=== PATIENT | male | born 1980 | race Caucasian/White ===

== ENCOUNTER 2018-03-21 14:55 | Emergency (ER) | payer MEDICAID ==
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
[2018-03-21 15:58] LABS: BASOPHILS % (AUTO) 0.5 %; EOSINOPHILS # (AUTO) 0.1 10^3/uL (0.0-0.7); EOSINOPHILS % (AUTO) 1.7 %; HGB - HEMOGLOBIN 14.5 g/dL (14.0-18.0); LYMPHOCYTES # (AUTO) 1.6 10^3/uL (1.5-3.5); LYMPHOCYTES % (AUTO) 21.3 %; MEAN CORPUSCULAR HGB CONC 35.7 g/dL (32.0-36.0); MEAN CORPUSCULAR VOLUME 92.3 fL (80.0-94.0); MEAN PLATELET VOLUME 7.9 fL (7.4-11.4); MONOCYTES # (AUTO) 0.7 10^3/uL (0.0-1.0); MONOCYTES % (AUTO) 8.6 %; NEUTROPHILS # (AUTO) 5.2 10^3/uL (1.5-6.6); NEUTROPHILS % (AUTO) 67.9 %; PLT - PLATELET COUNT 332 10^3/uL (130-450); RED BLOOD COUNT 4.41 10^6/uL (4.70-6.10); RED CELL DISTRIBUTION WIDTH 12.8 % (12.0-15.0); WHITE BLOOD COUNT 7.7 x10^3/uL (4.8-10.8)
[2018-03-21 16:15] LABS: ACETAMINOPHEN < 10 ug/mL (10-30); ALBUMIN 4.8 g/dL (3.2-5.5); ALBUMIN/GLOBULIN RATIO 1.4 (1.0-2.2); ALKALINE PHOSPHATASE 58 IU/L (42-121); ALT ALANINE AMINOTRANSFERASE 73 IU/L (10-60); AST ASPARTATE AMINOTRANSFERASE 42 IU/L (10-42); BILIRUBIN,TOTAL 1.2 mg/dL (0.2-1.0); BUN - BLOOD UREA NITROGEN 11 mg/dL (6-20); CALCIUM 9.5 mg/dL (8.5-10.3); CARBON DIOXIDE - CO2 24 mmol/L (21-32); CHLORIDE 99 mmol/L (101-111); CREATININE 0.9 mg/dL (0.6-1.2); GFR - MDRD 95 (>89); GLUCOSE 101 mg/dL (70-100); LIPASE 22 U/L (22-51); SALICYLATE < 6.0 mg/dL; SODIUM 133 mmol/L (135-145); TOTAL PROTEIN 8.3 g/dL (6.7-8.2)
[2018-03-21 16:24] LABS: VALPROIC ACID (DEPAKOTE) < 10.0 ug/mL
[2018-03-21 16:57] LABS: MUDS CUTOFF CONCENTRATIONS CUTOFF CONC BELOW:
[2018-03-21 17:03] LABS: BILIRUBIN,URINE NEGATIVE (NEGATIVE); GLUCOSE, URINE (UA) NEGATIVE (NEGATIVE); KETONES,URINE (UA) 15 mg/dL (NEGATIVE); LEUKOCYTE ESTERASE, URINE NEGATIVE (NEGATIVE); NITRITE,URINE NEGATIVE (NEGATIVE); OCCULT BLOOD,URINE NEGATIVE (NEGATIVE); PROTEIN,URINE NEGATIVE (NEGATIVE); UROBILINOGEN,URINE 0.2 (NORMAL) E.U./dL (NORMAL)
[2018-03-21 17:05] LABS: CLARITY,URINE CLEAR (CLEAR)
[2018-03-21 17:17] LABS: AMPHETAMINE SCREEN,URINE POSITIVE (NEGATIVE); BENZODIAZEPINES SCREEN, URINE NEGATIVE (NEGATIVE); COCAINE SCREEN URINE NEGATIVE (NEGATIVE); METHADONE SCREEN, URINE NEGATIVE (NEGATIVE); METHAMPHETAMINES SCREEN, URINE POSITIVE (NEGATIVE); OPIATE SCREEN, URINE NEGATIVE (NEGATIVE); OXYCODONE SCREEN, URINE NEGATIVE (NEGATIVE); TRICYCLIC ANTIDEPRESSANT,URINE POSITIVE (NEGATIVE)
[2018-03-21 17:18] LABS: PROPOXYPHENE SCREEN, URINE NEGATIVE (NEGATIVE)
[2018-03-21 23:27] VITALS: BP 149/91
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
== END 2018-03-21 23:25 | disposition home or self-care (01) ==
LOC: ED 14:55
DX: F31.0 Bipolar disorder, current episode hypomanic (principal)
CPT/HCPCS: 36415; 80053; 80164; 80306; 80307; 80320; 80329; 81003; 83690; 84443; 85025; 99283; G0425; Q3014; 81001; 87086

== ENCOUNTER 2019-05-13 17:54 | Emergency (ER) | payer MEDICAID ==
[2019-05-13 18:09] VITALS: BP 115/79
== END 2019-05-13 18:19 | disposition left against medical advice (07) ==
LOC: ED 17:54
DX: Z53.21 Procedure and treatment not carried out due to patient leaving prior to being seen by health care provider (principal)
CPT/HCPCS: 80053; 80307; 80320; 80329; 83690; 84443; 85025

== ENCOUNTER 2019-05-13 19:56 | Emergency (ER) | payer MEDICAID ==
[2019-05-14 00:54] LABS: MUDS CUTOFF CONCENTRATIONS CUTOFF CONC BELOW:
[2019-05-14 01:01] LABS: BILIRUBIN,URINE NEGATIVE (NEGATIVE); CLARITY,URINE CLEAR (CLEAR); GLUCOSE, URINE (UA) NEGATIVE (NEGATIVE); KETONES,URINE (UA) NEGATIVE (NEGATIVE); LEUKOCYTE ESTERASE, URINE NEGATIVE (NEGATIVE); NITRITE,URINE NEGATIVE (NEGATIVE); OCCULT BLOOD,URINE NEGATIVE (NEGATIVE); PROTEIN,URINE NEGATIVE (NEGATIVE); UROBILINOGEN,URINE 0.2 (NORMAL) E.U./dL (NORMAL)
[2019-05-14 01:06] LABS: BASOPHILS # (AUTO) 0.1 10^3/uL (0.0-0.1); BASOPHILS % (AUTO) 0.9 %; EOSINOPHILS # (AUTO) 0.2 10^3/uL (0.0-0.7); EOSINOPHILS % (AUTO) 3.5 %; HGB - HEMOGLOBIN 13.4 g/dL (14.0-18.0); LYMPHOCYTES # (AUTO) 3.3 10^3/uL (1.5-3.5); LYMPHOCYTES % (AUTO) 48.5 %; MEAN CORPUSCULAR HEMOGLOBIN 32.3 pg (27.0-31.0); MEAN CORPUSCULAR HGB CONC 34.1 g/dL (32.0-36.0); MEAN CORPUSCULAR VOLUME 94.7 fL (80.0-94.0); MEAN PLATELET VOLUME 8.9 fL (7.4-11.4); MONOCYTES # (AUTO) 0.4 10^3/uL (0.0-1.0); MONOCYTES % (AUTO) 6.4 %; NEUTROPHILS # (AUTO) 2.8 10^3/uL (1.5-6.6); NEUTROPHILS % (AUTO) 40.6 %; PLT - PLATELET COUNT 363 10^3/uL (130-450); RED BLOOD COUNT 4.15 10^6/uL (4.70-6.10); RED CELL DISTRIBUTION WIDTH 13.1 % (12.0-15.0); WHITE BLOOD COUNT 6.8 x10^3/uL (4.8-10.8)
[2019-05-14 01:13] LABS: AMPHETAMINE SCREEN,URINE POSITIVE (NEGATIVE); BENZODIAZEPINES SCREEN, URINE NEGATIVE (NEGATIVE); COCAINE SCREEN URINE NEGATIVE (NEGATIVE); METHADONE SCREEN, URINE NEGATIVE (NEGATIVE); METHAMPHETAMINES SCREEN, URINE POSITIVE (NEGATIVE); OPIATE SCREEN, URINE NEGATIVE (NEGATIVE); OXYCODONE SCREEN, URINE NEGATIVE (NEGATIVE); PROPOXYPHENE SCREEN, URINE NEGATIVE (NEGATIVE); TRICYCLIC ANTIDEPRESSANT,URINE NEGATIVE (NEGATIVE)
[2019-05-14 01:18] LABS: ALBUMIN 4.2 g/dL (3.2-5.5); ALBUMIN/GLOBULIN RATIO 1.6 (1.0-2.2); ALKALINE PHOSPHATASE 56 IU/L (42-121); ALT ALANINE AMINOTRANSFERASE 22 IU/L (10-60); AST ASPARTATE AMINOTRANSFERASE 21 IU/L (10-42); BILIRUBIN,TOTAL 0.3 mg/dL (0.2-1.0); BUN - BLOOD UREA NITROGEN 19 mg/dL (6-20); CALCIUM 9.6 mg/dL (8.5-10.3); CARBON DIOXIDE - CO2 28 mmol/L (21-32); CHLORIDE 102 mmol/L (101-111); CREATININE 0.8 mg/dL (0.6-1.2); GFR - MDRD 109 (>89); GLUCOSE 109 mg/dL (70-100); LIPASE 57 U/L (22-51); SODIUM 140 mmol/L (135-145); TOTAL PROTEIN 6.9 g/dL (6.7-8.2)
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
[2019-05-14 05:58] VITALS: BP 115/74
[2019-05-14] MEDS ORDERED: ACETAMINOPHEN 325 MG TABLET PO STA (06:45)
== END 2019-05-14 06:50 | disposition home or self-care (01) ==
LOC: ED 19:56
DX: F15.129 Other stimulant abuse with intoxication, unspecified (principal); F19.10 Other psychoactive substance abuse, uncomplicated; F31.62 Bipolar disorder, current episode mixed, moderate; Z59.0 Homelessness
CPT/HCPCS: 36415; 80053; 80306; 80320; 81003; 83690; 85025; 99283; A9270; 81001; 87086

== ENCOUNTER 2019-07-07 10:58 | Emergency (ER) | payer MEDICAID ==
[2019-07-07 11:07] VITALS: BP 130/81
[2019-07-07 11:27] LABS: BASOPHILS # (AUTO) 0.1 10^3/uL (0.0-0.1); BASOPHILS % (AUTO) 1.1 %; EOSINOPHILS # (AUTO) 0.4 10^3/uL (0.0-0.7); HGB - HEMOGLOBIN 12.8 g/dL (14.0-18.0); LYMPHOCYTES # (AUTO) 1.7 10^3/uL (1.5-3.5); LYMPHOCYTES % (AUTO) 31.8 %; MEAN CORPUSCULAR HEMOGLOBIN 30.8 pg (27.0-31.0); MEAN CORPUSCULAR HGB CONC 32.3 g/dL (32.0-36.0); MEAN CORPUSCULAR VOLUME 95.4 fL (80.0-94.0); MEAN PLATELET VOLUME 9.2 fL (7.4-11.4); MONOCYTES # (AUTO) 0.5 10^3/uL (0.0-1.0); NEUTROPHILS # (AUTO) 2.6 10^3/uL (1.5-6.6); NEUTROPHILS % (AUTO) 49.5 %; PLT - PLATELET COUNT 305 10^3/uL (130-450); RED BLOOD COUNT 4.15 10^6/uL (4.70-6.10); RED CELL DISTRIBUTION WIDTH 13.5 % (12.0-15.0); WHITE BLOOD COUNT 5.3 x10^3/uL (4.8-10.8)
[2019-07-07 11:49] LABS: ACETAMINOPHEN < 10 ug/mL (10-30); ALBUMIN 4.3 g/dL (3.2-5.5); ALBUMIN/GLOBULIN RATIO 1.5 (1.0-2.2); ALKALINE PHOSPHATASE 58 IU/L (42-121); ALT ALANINE AMINOTRANSFERASE 30 IU/L (10-60); AST ASPARTATE AMINOTRANSFERASE 22 IU/L (10-42); BILIRUBIN,TOTAL 0.8 mg/dL (0.2-1.0); BUN - BLOOD UREA NITROGEN 13 mg/dL (6-20); CALCIUM 9.4 mg/dL (8.5-10.3); CARBON DIOXIDE - CO2 26 mmol/L (21-32); CHLORIDE 105 mmol/L (101-111); CREATININE 0.7 mg/dL (0.6-1.2); GFR - MDRD 126 (>89); GLUCOSE 101 mg/dL (70-100); LIPASE 26 U/L (22-51); SALICYLATE < 6.0 mg/dL; SODIUM 139 mmol/L (135-145); TOTAL PROTEIN 7.1 g/dL (6.7-8.2)
== END 2019-07-07 12:04 | disposition left against medical advice (07) ==
LOC: ED 10:58
DX: Z53.21 Procedure and treatment not carried out due to patient leaving prior to being seen by health care provider (principal)
CPT/HCPCS: 36415; 80053; 80307; 80320; 80329; 83690; 84443; 85025

== ENCOUNTER 2019-12-28 13:15 | Outpatient (CLI) | payer MEDICAID | END 2019-12-28 13:16 | disposition critical access hospital (66) | LOC: EMS 13:15 | PROVIDERS: ATTEND Surgery | DX: R41.82 Altered mental status, unspecified (principal) | CPT/HCPCS: A0425; A0429; A0999 ==

== ENCOUNTER 2019-12-28 14:00 | Emergency (ER) | payer MEDICAID ==
--- NOTE | 2019-12-28 14:10 | ED Physician Documentation ---
PD HPI MHE - Stated complaint Stated Complaint: MHE - History obtained from History obtained from: Patient - History of Present Illness Primary symptom: Psychosis (39-year-old gentleman with history of "insanity per him" presents seemingly just compensated from same. Police were called because he was acting odd in public. He is a rambling historian and seems fixated on the safety of his family as well as the difference between black versus white people. He says he is trying to take his medications but unclear if he actually is. He also admits to taking some Adderall that was not his.), Anxiety Review of Systems Ten Systems: 10 systems reviewed and negative Constitutional: denies: Fever, Chills Throat: denies: Dental pain / toothache, Sore throat Cardiac: denies: Chest pain / pressure, Palpitations Respiratory: denies: Dyspnea, Cough PD PAST MEDICAL HISTORY - Past Medical History Past Medical History: Yes GI: GERD Psych: Anxiety, Bipolar disorder, Post traumatic stress disorder - Past Surgical History Past Surgical History: No - Present Medications Home Medications: Ambulatory Orders Medication Instructions Recorded Confirmed Divalproex [Christianne Dr] 750 mg PO BID 03/21/18 05/14/19 Prazosin [Minipress] 1 tab PO DAILY 03/21/18 05/14/19 Propranolol [Inderal] 1 tab PO BID 03/21/18 05/14/19 Quetiapine Fumarate [Seroquel] 400 mg PO QPM #30 tablet 03/21/18 05/14/19 Zolpidem [Ambien] 1 tab PO DAILY 03/21/18 05/14/19 haloperidoL [Haloperidol] 1 tab PO BID 03/21/18 05/14/19 raNITIdine [Zantac] 150 mg PO DAILY 03/21/18 05/14/19 - Allergies Allergies/Adverse Reactions: Allergies Allergy/AdvReac Type Severity Reaction Status Date / Time risperidone Allergy Unknown Verified 07/07/19 11:07 - Social History Does the pt smoke?: No Smoking Status: Never smoker Does the pt drink ETOH?: Yes - Family History Family history: reports: Non contributory - POLST Patient has POLST: No PD ED PE NORMAL - Vitals Vital signs reviewed: Yes - General General: Alert and oriented X 3 (He is unkempt) - HEENT HEENT: PERRL, EOMI - Neck Neck: Supple, no meningeal sign, No bony TTP - Cardiac Cardiac: RRR, No murmur - Respiratory Respiratory: No respiratory distress, Clear bilaterally - Abdomen Abdomen: Non tender, Non distended - Derm Derm: Normal color, Warm and dry - Extremities Extremities: No edema, No calf tenderness / cord - Neuro Neuro: Alert and oriented X 3, No motor deficit, No sensory deficit, Normal speech - Psych Psych: Other (Rambling and tangential historian with delusions about safety of his family.) Results - Vitals Vitals: Vital Signs - 24 hr 12/28/19 12/28/19 12/28/19 14:19 14:23 16:45 Temperature 36.2 C L Heart Rate 97 95 99 Respiratory 16 16 20 Rate Blood Pressure 140/96 H 138/78 H 145/74 H O2 Saturation 100 100 100 12/28/19 12/28/19 17:55 21:43 Temperature 36.6 C Heart Rate 103 H 81 Respiratory 20 12 Rate Blood Pressure 155/98 H 148/88 H O2 Saturation 100 99 Oxygen O2 Source Room air - EKG (time done) 1428 Rate: Rate (enter#) (88) Rhythm: NSR (with sinus arrythmia) [place]: Normal Intervals: Normal [place] QRS: Normal Ischemia: Normal ST segments Computer interpretation: Agree with computer - Labs Labs: Laboratory Tests 12/28/19 12/28/19 12/28/19 14:10 14:10 14:10 WBC 10.6 RBC 4.60 L Hgb 14.6 Hct 42.0 MCV 91.3 MCH 31.7 H MCHC 34.8 RDW 12.3 Plt Count 538 H MPV 9.0 Neut # (Auto) 7.7 H Lymph # (Auto) 1.9 [place] # (Auto) 0.8 Eos # (Auto) 0.1 Baso # (Auto) 0.1 Absolute Nucleated RBC 0.00 Nucleated RBC % 0.0 Sodium 130 L Potassium 3.6 Chloride 96 L Carbon Dioxide 20 L Anion Gap 14.0 H BUN 14 Creatinine 0.7 Estimated GFR (MDRD) 126 Glucose 91 Calcium 9.6 Total Bilirubin 1.1 H AST 27 ALT 24 Alkaline Phosphatase 53 Total Protein 8.3 H Albumin 5.1 Globulin 3.2 Albumin/Globulin Ratio 1.6 Lipase 22 TSH 2.96 Urine Color Urine Clarity Urine pH Ur Specific [place] Urine Protein Urine Glucose (UA) Urine Ketones Urine Occult Blood Urine Nitrite Urine Bilirubin Urine Urobilinogen Ur Leukocyte Esterase Ur Microscopic Review Urine Culture Comments Last Dose Date Last Dose Time Salicylates < 6.0 Urine Opiates Screen Ur Oxycodone Screen Urine Methadone Screen Ur Propoxyphene Screen Acetaminophen < 10 L Ur Barbiturates Screen Valproic Acid Ur Tricyclics Screen Ur Phencyclidine Scrn Ur Amphetamine Screen U Methamphetamines Scrn U Benzodiazepines Scrn Urine Cocaine Screen U Cannabinoids Screen Ethyl Alcohol < 5.0 12/28/19 12/28/19 14:10 15:22 WBC RBC Hgb Hct MCV MCH MCHC RDW Plt Count MPV Neut # (Auto) Lymph # (Auto) [place] # (Auto) Eos # (Auto) Baso # (Auto) Absolute Nucleated RBC Nucleated RBC % Sodium Potassium Chloride Carbon Dioxide Anion Gap BUN Creatinine Estimated GFR (MDRD) Glucose Calcium Total Bilirubin AST ALT Alkaline Phosphatase Total Protein Albumin Globulin Albumin/Globulin Ratio Lipase TSH Urine Color YELLOW Urine Clarity CLEAR Urine pH 6.0 Ur Specific [place] 1.015 Urine Protein NEGATIVE Urine Glucose (UA) NEGATIVE Urine Ketones NEGATIVE Urine Occult Blood NEGATIVE Urine Nitrite NEGATIVE Urine Bilirubin NEGATIVE Urine Urobilinogen 0.2 (NORMAL) Ur Leukocyte Esterase NEGATIVE Ur Microscopic Review NOT INDICATED Urine Culture Comments NOT INDICATED Last Dose Date UNK Last Dose Time UNK Salicylates Urine Opiates Screen NEGATIVE Ur Oxycodone Screen NEGATIVE Urine Methadone Screen NEGATIVE Ur Propoxyphene Screen NEGATIVE Acetaminophen Ur Barbiturates Screen NEGATIVE Valproic Acid < 10.0 Ur Tricyclics Screen NEGATIVE Ur Phencyclidine Scrn NEGATIVE Ur Amphetamine Screen POSITIVE H U Methamphetamines Scrn POSITIVE H U Benzodiazepines Scrn NEGATIVE Urine Cocaine Screen NEGATIVE U Cannabinoids Screen POSITIVE H Ethyl Alcohol PD MEDICAL DECISION MAKING - ED course ED course: Pt with delusions/psychosis. Willing to be hospitalized, but not sure he would be a good kiana voluntary and as such DCR saw pt and arranged for xfer to [facility] for tx. Departure - Departure Disposition: 65 Psych Hosp/Unit DC/Xfer Clinical Impression: Substance abuse Bipolar affective disorder Qualifiers: Active/Remission status: currently active Current bipolar episode type: manic Current episode severity: severe Psychotic features: with psychotic features Qualified Code(s): F31.2 - Bipolar disorder, current episode manic severe with psychotic features Condition: Stable Discharge Date/Time: 12/29/19 02:05
[2019-12-28 14:18] LABS: BASOPHILS # (AUTO) 0.1 10^3/uL (0.0-0.1); BASOPHILS % (AUTO) 0.5 %; EOSINOPHILS # (AUTO) 0.1 10^3/uL (0.0-0.7); HGB - HEMOGLOBIN 14.6 g/dL (14.0-18.0); LYMPHOCYTES # (AUTO) 1.9 10^3/uL (1.5-3.5); LYMPHOCYTES % (AUTO) 17.9 %; MEAN CORPUSCULAR HEMOGLOBIN 31.7 pg (27.0-31.0); MEAN CORPUSCULAR HGB CONC 34.8 g/dL (32.0-36.0); MEAN CORPUSCULAR VOLUME 91.3 fL (80.0-94.0); MONOCYTES # (AUTO) 0.8 10^3/uL (0.0-1.0); MONOCYTES % (AUTO) 7.3 %; NEUTROPHILS # (AUTO) 7.7 10^3/uL (1.5-6.6); NEUTROPHILS % (AUTO) 72.8 %; PLT - PLATELET COUNT 538 10^3/uL (130-450); RED CELL DISTRIBUTION WIDTH 12.3 % (12.0-15.0); WHITE BLOOD COUNT 10.6 x10^3/uL (4.8-10.8)
[2019-12-28 14:34] LABS: ACETAMINOPHEN < 10 ug/mL (10-30); ALBUMIN 5.1 g/dL (3.2-5.5); ALBUMIN/GLOBULIN RATIO 1.6 (1.0-2.2); ALKALINE PHOSPHATASE 53 IU/L (42-121); ALT ALANINE AMINOTRANSFERASE 24 IU/L (10-60); AST ASPARTATE AMINOTRANSFERASE 27 IU/L (10-42); BILIRUBIN,TOTAL 1.1 mg/dL (0.2-1.0); BUN - BLOOD UREA NITROGEN 14 mg/dL (6-20); CALCIUM 9.6 mg/dL (8.5-10.3); CARBON DIOXIDE - CO2 20 mmol/L (21-32); CHLORIDE 96 mmol/L (101-111); CREATININE 0.7 mg/dL (0.6-1.2); GLUCOSE 91 mg/dL (70-100); LIPASE 22 U/L (22-51); SALICYLATE < 6.0 mg/dL; SODIUM 130 mmol/L (135-145); TOTAL PROTEIN 8.3 g/dL (6.7-8.2)
[2019-12-28 14:49] LABS: VALPROIC ACID (DEPAKOTE) < 10.0 ug/mL
[2019-12-28 15:33] LABS: MUDS CUTOFF CONCENTRATIONS CUTOFF CONC BELOW:
[2019-12-28 15:36] LABS: BILIRUBIN,URINE NEGATIVE (NEGATIVE); GLUCOSE, URINE (UA) NEGATIVE (NEGATIVE); KETONES,URINE (UA) NEGATIVE (NEGATIVE); LEUKOCYTE ESTERASE, URINE NEGATIVE (NEGATIVE); NITRITE,URINE NEGATIVE (NEGATIVE); OCCULT BLOOD,URINE NEGATIVE (NEGATIVE); PROTEIN,URINE NEGATIVE (NEGATIVE); UROBILINOGEN,URINE 0.2 (NORMAL) E.U./dL (NORMAL)
[2019-12-28 15:38] LABS: CLARITY,URINE CLEAR (CLEAR)
[2019-12-28 15:48] LABS: AMPHETAMINE SCREEN,URINE POSITIVE (NEGATIVE); BENZODIAZEPINES SCREEN, URINE NEGATIVE (NEGATIVE); COCAINE SCREEN URINE NEGATIVE (NEGATIVE); METHADONE SCREEN, URINE NEGATIVE (NEGATIVE); METHAMPHETAMINES SCREEN, URINE POSITIVE (NEGATIVE); OPIATE SCREEN, URINE NEGATIVE (NEGATIVE); TRICYCLIC ANTIDEPRESSANT,URINE NEGATIVE (NEGATIVE)
[2019-12-28 15:49] LABS: OXYCODONE SCREEN, URINE NEGATIVE (NEGATIVE); PROPOXYPHENE SCREEN, URINE NEGATIVE (NEGATIVE)
[2019-12-29] MEDS: OLANZapine ODT 5 MG TABLET TL ONE (01:55)
[2019-12-29 02:08] VITALS: BP 148/88
== END 2019-12-29 02:05 ==
LOC: EDUNIT# → ED 14:00
DX: F19.10 Other psychoactive substance abuse, uncomplicated (principal); F31.2 Bipolar disorder, current episode manic severe with psychotic features
CPT/HCPCS: 36415; 80053; 80164; 80306; 80307; 80320; 80329; 81003; 83690; 84443; 85025; 93005; 99283; 99285; A9270; 81001; 87086

== ENCOUNTER 2020-03-01 16:10 | Outpatient (CLI) | payer MEDICAID | END 2020-03-01 16:11 | disposition critical access hospital (66) | LOC: EMS 16:10 | PROVIDERS: ATTEND Surgery | DX: Z59.0 Homelessness (principal) | CPT/HCPCS: A0425; A0429; A0999 ==

== ENCOUNTER 2020-03-01 16:46 | Emergency (ER) | payer MEDICAID ==
[2020-03-01 16:55] VITALS: BP 108/90
--- NOTE | 2020-03-01 17:43 | ED Physician Documentation ---
History of Present Illness - Stated complaint Stated Complaint: MHE - Chief complaint Chief Complaint: General - History obtained from History obtained from: Patient - History of Present Illness Timing: Prior to arrival Pain level max: 0 Pain level now: 0 - Additonal information Additional information: 39-year-old homeless male presents to the emergency department requesting social work evaluation. He reports that he is homeless has a history of schizophrenia and has been having a difficult time managing his medications while homeless. In point he denies SI or HI.He would like to go to [facility] to be admitted as an inpatient for management of his homelessness and schizophrenia. he has plenty of meds in his possession meds: aripiprazole, divalprox, gabapentin, prazosin, seroquel, trazadone Review of Systems Constitutional: reports: Fever. denies: Chills Eyes: denies: Loss of vision, Decreased vision GI: denies: Abdominal Pain, Abdominal Swelling Musculoskeletal: reports: Extremity pain (bilateral feet). denies: Neck pain, Back pain Psychiatric: reports: Anxiety. denies: Depressed, Suicidal, Homicidal, Hallucinations, Delusions PD PAST MEDICAL HISTORY - Past Medical History Past Medical History: Yes GI: GERD Psych: Anxiety, Bipolar disorder, Post traumatic stress disorder - Past Surgical History Past Surgical History: No - Present Medications Home Medications: Ambulatory Orders Medication Instructions Recorded Confirmed Divalproex [Christianne Jean] 750 mg PO BID 03/21/18 05/14/19 Prazosin [Minipress] 1 tab PO DAILY 03/21/18 05/14/19 Propranolol [Inderal] 1 tab PO BID 03/21/18 05/14/19 Quetiapine Fumarate [Seroquel] 400 mg PO QPM #30 tablet 03/21/18 05/14/19 Zolpidem [Ambien] 1 tab PO DAILY 03/21/18 05/14/19 haloperidoL [Haloperidol] 1 tab PO BID 03/21/18 05/14/19 raNITIdine [Zantac] 150 mg PO DAILY 03/21/18 05/14/19 - Allergies Allergies/Adverse Reactions: Allergies Allergy/AdvReac Type Severity Reaction Status Date / Time risperidone Allergy Unknown Verified 03/01/20 16:52 - Social History Does the pt smoke?: No Smoking Status: Never smoker Does the pt drink ETOH?: Yes Does the pt have substance abuse?: No - POLST Patient has POLST: No PD ED PE NORMAL - General General: Alert and oriented X 3, No acute distress, Well developed/nourished, Other - HEENT HEENT: PERRL, EOMI - Neck Neck: No bony TTP, No adenopathy - Cardiac Cardiac: RRR, No murmur - Respiratory Respiratory: No respiratory distress - Extremities Extremities: Other (bilateral feet pain. no sores or lesions. normal gait) - Neuro Neuro: Alert and oriented X 3, chest pain coordinator 2-12 intact, No motor deficit, No sensory deficit - Psych Psych: Normal mood, Other (Denies thoughts of self-harm or harm to others. No auditory or visual hallucinations.) Results - Vitals Vitals: Vital Signs - 24 hr 03/01/20 16:52 Temperature 36.9 C Heart Rate 82 Respiratory 16 Rate Blood Pressure 108/90 H O2 Saturation 100 Oxygen O2 Source Room air - Labs Labs: Laboratory Tests 03/01/20 03/01/20 03/01/20 17:50 17:50 17:50 WBC 7.7 RBC 4.20 L Hgb 13.3 L Hct 39.1 L MCV 93.1 MCH 31.7 H MCHC 34.0 RDW 12.9 Plt Count 331 MPV 9.6 Neut # (Auto) 4.7 Lymph # (Auto) 2.2 [place] # (Auto) 0.4 Eos # (Auto) 0.2 Baso # (Auto) 0.0 Absolute Nucleated RBC 0.00 Nucleated RBC % 0.0 Sodium 138 Potassium 4.1 Chloride 102 Carbon Dioxide 26 Anion Gap 10.0 BUN 13 Creatinine 0.7 Estimated GFR (MDRD) 126 Glucose 118 H Calcium 9.1 Total Bilirubin 0.4 AST 20 ALT 20 Alkaline Phosphatase 47 Total Protein 7.0 Albumin 4.5 Globulin 2.5 Albumin/Globulin Ratio 1.8 Lipase 27 TSH 0.12 L Salicylates < 6.0 Acetaminophen < 10 L Ethyl Alcohol < 5.0 PD MEDICAL DECISION MAKING - ED course Complexity details: reviewed results, re-evaluated patient, d/w patient ED course: 39-year-old male who is homeless presents to the emergency department requesting help managing his homelessness. He reports a history of schizophrenia and he has his medications with him. He reports that he wants to voluntarily go to [facility] so they can help him manage his medications. In point he denies SI or HI. He has no auditory or visual hallucinations he feels that he is safe. He just reports difficulty managing being homeless while here on [facility]. - Pt spoke on the public crisis line And feels that he is ready to leave the [facility]. He denies suicidal or homicidal ideation. He plans to go to a friend's house in [place] to [place] belongings and [place] go to [place] or [facility] where they have better homeless resources. He no longer wishes to remain in the emergency department. Departure - Departure Disposition: 01 Home, Self Care Clinical Impression: Homeless single person Schizophrenia Qualifiers: Schizophrenia type: other Qualified Code(s): F20.89 - Other schizophrenia; F20.8 - Other schizophrenia Condition: Stable Record reviewed to determine appropriate education?: Yes Instructions: ED Schizophrenia General Comments: Mathew I think your plan is good. [place]aying with a friend [place] a good idea as well as going to [place] or [place] where [facility] and more homeless resources are. If at any point you feel unsafe or have thoughts of self-harm return immediately to the emergency department.
[2020-03-01 17:57] LABS: BASOPHILS % (AUTO) 0.5 %; EOSINOPHILS # (AUTO) 0.2 10^3/uL (0.0-0.7); EOSINOPHILS % (AUTO) 2.7 %; HGB - HEMOGLOBIN 13.3 g/dL (14.0-18.0); LYMPHOCYTES # (AUTO) 2.2 10^3/uL (1.5-3.5); LYMPHOCYTES % (AUTO) 29.1 %; MEAN CORPUSCULAR HEMOGLOBIN 31.7 pg (27.0-31.0); MEAN CORPUSCULAR VOLUME 93.1 fL (80.0-94.0); MEAN PLATELET VOLUME 9.6 fL (7.4-11.4); MONOCYTES # (AUTO) 0.4 10^3/uL (0.0-1.0); MONOCYTES % (AUTO) 5.6 %; NEUTROPHILS # (AUTO) 4.7 10^3/uL (1.5-6.6); NEUTROPHILS % (AUTO) 61.7 %; PLT - PLATELET COUNT 331 10^3/uL (130-450); RED CELL DISTRIBUTION WIDTH 12.9 % (12.0-15.0); WHITE BLOOD COUNT 7.7 x10^3/uL (4.8-10.8)
[2020-03-01 18:13] LABS: ACETAMINOPHEN < 10 ug/mL (10-30); ALBUMIN 4.5 g/dL (3.2-5.5); ALBUMIN/GLOBULIN RATIO 1.8 (1.0-2.2); ALKALINE PHOSPHATASE 47 IU/L (42-121); ALT ALANINE AMINOTRANSFERASE 20 IU/L (10-60); AST ASPARTATE AMINOTRANSFERASE 20 IU/L (10-42); BILIRUBIN,TOTAL 0.4 mg/dL (0.2-1.0); BUN - BLOOD UREA NITROGEN 13 mg/dL (6-20); CALCIUM 9.1 mg/dL (8.5-10.3); CARBON DIOXIDE - CO2 26 mmol/L (21-32); CHLORIDE 102 mmol/L (101-111); CREATININE 0.7 mg/dL (0.6-1.2); GLUCOSE 118 mg/dL (70-100); LIPASE 27 U/L (22-51); SALICYLATE < 6.0 mg/dL; SODIUM 138 mmol/L (135-145)
== END 2020-03-01 18:53 | disposition home or self-care (01) ==
LOC: EDUNIT# → ED 16:46
DX: F20.9 Schizophrenia, unspecified (principal); F41.9 Anxiety disorder, unspecified; Z59.0 Homelessness; M79.672 Pain in left foot; M79.671 Pain in right foot
CPT/HCPCS: 36415; 80053; 80307; 80320; 80329; 83690; 84443; 85025; 99283; 99284

== ENCOUNTER 2020-03-26 19:18 | Outpatient (CLI) | payer MEDICAID | END 2020-03-26 23:59 | disposition critical access hospital (66) | LOC: EMS 19:18 | PROVIDERS: ATTEND Surgery | DX: R44.0 Auditory hallucinations (principal); R41.0 Disorientation, unspecified | CPT/HCPCS: A0425; A0429; A0999 ==

== ENCOUNTER 2020-03-26 19:53 | Emergency (ER) | payer MEDICAID ==
--- NOTE | 2020-03-26 19:57 | ED Physician Documentation ---
PD HPI MHE - Stated complaint Stated Complaint: HALLUCINATIONS - History obtained from History obtained from: Patient, EMS - Additional information Additional information: 39-year-old gentleman with history of bipolar disorder presents with depression, suicidal ideation without plan, and auditory hallucinations requesting voluntary hospitalization for the above. Admits to methamphetamine abuse last used 2 days ago. Last hospitalization for psychiatric reasons approximately 3 months ago. Review of Systems Ten Systems: 10 systems reviewed and negative Constitutional: reports: Reviewed and negative Ears: reports: Reviewed and negative Nose: reports: Reviewed and negative Cardiac: reports: Reviewed and negative PD PAST MEDICAL HISTORY - Past Medical History GI: GERD Psych: Anxiety, Bipolar disorder, Post traumatic stress disorder - Past Surgical History Past Surgical History: No - Present Medications Home Medications: Ambulatory Orders Medication Instructions Recorded Confirmed ARIPiprazole [Abilify] 5 mg PO QPM 03/26/20 03/26/20 Atomoxetine HCl 60 mg PO DAILY 03/26/20 03/26/20 Divalproex ER [Depakote ER] 500 mg PO DAILY 03/26/20 03/26/20 Gabapentin 300 mg PO TID 03/26/20 03/26/20 Quetiapine Fumarate 300 mg PO QPM 03/26/20 03/26/20 Trazodone HCl 100 mg PO QPM 03/26/20 03/26/20 - Allergies Allergies/Adverse Reactions: Allergies Allergy/AdvReac Type Severity Reaction Status Date / Time lithium Allergy Unknown Verified 03/26/20 20:07 risperidone Allergy Unknown Verified 03/26/20 20:07 - Social History Does the pt smoke?: No Smoking Status: Never smoker Does the pt drink ETOH?: Yes Does the pt have substance abuse?: No - POLST Patient has POLST: No PD ED PE NORMAL - Vitals Vital signs reviewed: Yes - General General: Alert and oriented X 3, Other (Cooperative but slightly hypervigilant) - HEENT HEENT: PERRL, EOMI - Neck Neck: Supple, no meningeal sign, No bony TTP - Cardiac Cardiac: RRR, No murmur - Respiratory Respiratory: No respiratory distress, Clear bilaterally - Abdomen Abdomen: Soft, Non tender - Back Back: No CVA TTP, No spinal TTP - Derm Derm: Normal color, Warm and dry - Extremities Extremities: No edema, No calf tenderness / cord - Neuro Neuro: Alert and oriented X 3, Normal speech Results - Vitals Vitals: Vital Signs - 24 hr 03/26/20 20:00 Temperature 36.2 C L Heart Rate 80 Respiratory 18 Rate Blood Pressure 110/96 H O2 Saturation 100 Oxygen O2 Source Room air - Labs Labs: Laboratory Tests 03/26/20 03/26/20 03/26/20 20:05 20:15 20:15 WBC 6.0 RBC 4.07 L Hgb 13.1 L Hct 38.2 L MCV 93.9 MCH 32.2 H MCHC 34.3 RDW 12.7 Plt Count 289 MPV 9.0 Neut # (Auto) 2.9 Lymph # (Auto) 2.2 [place] # (Auto) 0.5 Eos # (Auto) 0.3 Baso # (Auto) 0.0 Absolute Nucleated RBC 0.00 Nucleated RBC % 0.0 Sodium 137 Potassium 3.9 Chloride 102 Carbon Dioxide 29 Anion Gap 6.0 BUN 22 H Creatinine 0.8 Estimated GFR (MDRD) 108 Glucose 87 Calcium 9.1 Total Bilirubin 0.7 AST 24 ALT 30 Alkaline Phosphatase 43 Total Protein 6.9 Albumin 4.4 Globulin 2.5 Albumin/Globulin Ratio 1.8 Lipase 27 TSH Urine Color YELLOW Urine Clarity CLEAR Urine pH 5.5 Ur Specific [place] >=1.030 H Urine Protein NEGATIVE Urine Glucose (UA) NEGATIVE Urine Ketones NEGATIVE Urine Occult Blood NEGATIVE Urine Nitrite NEGATIVE Urine Bilirubin NEGATIVE Urine Urobilinogen 0.2 (NORMAL) Ur Leukocyte Esterase NEGATIVE Ur Microscopic Review NOT INDICATED Urine Culture Comments NOT INDICATED Last Dose Date Last Dose Time Salicylates < 6.0 Urine Opiates Screen NEGATIVE Ur Oxycodone Screen NEGATIVE Urine Methadone Screen NEGATIVE Ur Propoxyphene Screen NEGATIVE Acetaminophen < 10 L Ur Barbiturates Screen NEGATIVE Valproic Acid Ur Tricyclics Screen POSITIVE H Ur Phencyclidine Scrn NEGATIVE Ur Amphetamine Screen POSITIVE H U Methamphetamines Scrn POSITIVE H U Benzodiazepines Scrn NEGATIVE Urine Cocaine Screen NEGATIVE U Cannabinoids Screen POSITIVE H Ethyl Alcohol < 5.0 03/26/20 03/26/20 20:15 20:15 WBC RBC Hgb Hct MCV MCH MCHC RDW Plt Count MPV Neut # (Auto) Lymph # (Auto) [place] # (Auto) Eos # (Auto) Baso # (Auto) Absolute Nucleated RBC Nucleated RBC % Sodium Potassium Chloride Carbon Dioxide Anion Gap BUN Creatinine Estimated GFR (MDRD) Glucose Calcium Total Bilirubin AST ALT Alkaline Phosphatase Total Protein Albumin Globulin Albumin/Globulin Ratio Lipase TSH 0.44 Urine Color Urine Clarity Urine pH Ur Specific [place] Urine Protein Urine Glucose (UA) Urine Ketones Urine Occult Blood Urine Nitrite Urine Bilirubin Urine Urobilinogen Ur Leukocyte Esterase Ur Microscopic Review Urine Culture Comments Last Dose Date UNKNOWN Last Dose Time UNKNOWN Salicylates Urine Opiates Screen Ur Oxycodone Screen Urine Methadone Screen Ur Propoxyphene Screen Acetaminophen Ur Barbiturates Screen Valproic Acid < 10.0 Ur Tricyclics Screen Ur Phencyclidine Scrn Ur Amphetamine Screen U Methamphetamines Scrn U Benzodiazepines Scrn Urine Cocaine Screen U Cannabinoids Screen Ethyl Alcohol PD MEDICAL DECISION MAKING - ED course ED course: 39 yo male BIBA and requests voluntary psych admit. Psych dx + drug abuse. [place] considering. Plan at sign out to night MD> if [place] pt says no, telepsych and SW AM. Pt is voluntary. Departure - Departure Clinical Impression: Substance abuse Bipolar affective disorder Qualifiers: Active/Remission status: currently active Current bipolar episode type: hypomanic Qualified Code(s): F31.0 - Bipolar disorder, current episode hypomanic Condition: Stable
[2020-03-26 20:10] LABS: MUDS CUTOFF CONCENTRATIONS CUTOFF CONC BELOW:
[2020-03-26 20:14] LABS: BILIRUBIN,URINE NEGATIVE (NEGATIVE); GLUCOSE, URINE (UA) NEGATIVE (NEGATIVE); KETONES,URINE (UA) NEGATIVE (NEGATIVE); LEUKOCYTE ESTERASE, URINE NEGATIVE (NEGATIVE); NITRITE,URINE NEGATIVE (NEGATIVE); OCCULT BLOOD,URINE NEGATIVE (NEGATIVE); PH,URINE 5.5 PH (5.0-7.5); PROTEIN,URINE NEGATIVE (NEGATIVE); UROBILINOGEN,URINE 0.2 (NORMAL) E.U./dL (NORMAL)
[2020-03-26 20:15] LABS: CLARITY,URINE CLEAR (CLEAR)
[2020-03-26 20:21] LABS: BASOPHILS % (AUTO) 0.5 %; EOSINOPHILS # (AUTO) 0.3 10^3/uL (0.0-0.7); HGB - HEMOGLOBIN 13.1 g/dL (14.0-18.0); LYMPHOCYTES # (AUTO) 2.2 10^3/uL (1.5-3.5); MEAN CORPUSCULAR HEMOGLOBIN 32.2 pg (27.0-31.0); MEAN CORPUSCULAR HGB CONC 34.3 g/dL (32.0-36.0); MEAN CORPUSCULAR VOLUME 93.9 fL (80.0-94.0); MONOCYTES # (AUTO) 0.5 10^3/uL (0.0-1.0); MONOCYTES % (AUTO) 7.9 %; NEUTROPHILS # (AUTO) 2.9 10^3/uL (1.5-6.6); NEUTROPHILS % (AUTO) 49.3 %; PLT - PLATELET COUNT 289 10^3/uL (130-450); RED BLOOD COUNT 4.07 10^6/uL (4.70-6.10); RED CELL DISTRIBUTION WIDTH 12.7 % (12.0-15.0)
[2020-03-26 20:37] LABS: ACETAMINOPHEN < 10 ug/mL (10-30); ALBUMIN 4.4 g/dL (3.2-5.5); ALBUMIN/GLOBULIN RATIO 1.8 (1.0-2.2); ALKALINE PHOSPHATASE 43 IU/L (42-121); ALT ALANINE AMINOTRANSFERASE 30 IU/L (10-60); AST ASPARTATE AMINOTRANSFERASE 24 IU/L (10-42); BILIRUBIN,TOTAL 0.7 mg/dL (0.2-1.0); BUN - BLOOD UREA NITROGEN 22 mg/dL (6-20); CALCIUM 9.1 mg/dL (8.5-10.3); CARBON DIOXIDE - CO2 29 mmol/L (21-32); CHLORIDE 102 mmol/L (101-111); CREATININE 0.8 mg/dL (0.6-1.2); GLUCOSE 87 mg/dL (70-100); LIPASE 27 U/L (22-51); SALICYLATE < 6.0 mg/dL; SODIUM 137 mmol/L (135-145); TOTAL PROTEIN 6.9 g/dL (6.7-8.2)
[2020-03-26 20:42] LABS: AMPHETAMINE SCREEN,URINE POSITIVE (NEGATIVE); BENZODIAZEPINES SCREEN, URINE NEGATIVE (NEGATIVE); COCAINE SCREEN URINE NEGATIVE (NEGATIVE); METHADONE SCREEN, URINE NEGATIVE (NEGATIVE); METHAMPHETAMINES SCREEN, URINE POSITIVE (NEGATIVE); OPIATE SCREEN, URINE NEGATIVE (NEGATIVE); OXYCODONE SCREEN, URINE NEGATIVE (NEGATIVE); PROPOXYPHENE SCREEN, URINE NEGATIVE (NEGATIVE); TRICYCLIC ANTIDEPRESSANT,URINE POSITIVE (NEGATIVE)
[2020-03-26 20:45] LABS: VALPROIC ACID (DEPAKOTE) < 10.0 ug/mL
--- NOTE | 2020-03-27 06:23 | ED Physician Documentation ---
ED Addendum - Addendum Addendum: 03/27/20 06:22 39-year-old male with methamphetamine on board has acute hallucinations and request inpatient care. He is being reviewed at [facility]. He slept most of the night.
[2020-03-27] MEDS ORDERED: ACETAMINOPHEN 325 MG TABLET PO STA (07:33)
[2020-03-27] MEDS ORDERED: OLANZapine ODT 5 MG TABLET TL ONE (09:05)
[2020-03-27] MEDS ORDERED: LORazepam 1 MG TABLET PO STA (09:05)
[2020-03-27 13:39] VITALS: BP 101/60
== END 2020-03-27 14:35 ==
LOC: EDUNIT# → ED 19:53
DX: F31.0 Bipolar disorder, current episode hypomanic (principal); R45.851 Suicidal ideations; F15.10 Other stimulant abuse, uncomplicated; R44.0 Auditory hallucinations
CPT/HCPCS: 36415; 80053; 80164; 80306; 80307; 80320; 80329; 81003; 83690; 84443; 85025; 99283; 99285; A9270; J8499; 81001; 87086